=== PATIENT | female | born 1975 | race Caucasian/White ===

== ENCOUNTER 2018-02-05 06:47 | Emergency (ER) | payer OTHER ==
[~2018-02-05] VITALS: Ht 162.6 cm; Wt 128.8 kg
--- NOTE | ~2018-02-05 | EKG ---
[place] [address] [employer] [place] [address] ELECTROCARDIOGRAM REPORT Name: RAIZA SANCHEZ [facility] [id number] Admission: 02/05/18 Attend Phys: Discharge: Date of : 73 Report #: [id number] THIS REPORT FOR: //name// [facility] ED Test Date: 2018-02-05 Test Time: 07:58:22 Pat Name: RAIZA SANCHEZ Department: Room: Gender: F Field Services Manager: JJ : 1975 Requested By: Eris Dominguez Order Number: [id number] MD: Sea [place]ates Measurements Intervals [place] Rate: 77 P: 39 MT: 153 QRS: 41 QRSD: 101 T: 63 QT: 403 QTc: 457 Interpretive Statements Sinus rhythm Low voltage, extremity and precordial leads Compared to ECG 08/07/2015 04:46:43 Low QRS voltage now present Sinus arrhythmia no longer present T-wave abnormality no longer present Electronically Signed On 02-05-2018 8:24:48 CDT by Sea [place]ates [email or web address] <ELECTRONICALLY SIGNED> By: Sea Coates MD 02/05/18 [id number] Sea Coates MD /[email or web address]
[~2018-02-05 06:47] MED LIST: ACETAMINOPHEN650 M5 PO; ADVAIR 250-501 EACH INH; ADVAIR 500-501 EACH INH; ALBUTEROL2.5 MG/0.5 INH; AVELOX 400 MG400 M1 PO; AVELOX 400 MG400 MG PO; CLARITIN10 MG PO; CLONAZEPAM 1 MG1 M1 PO; DUONEB 2.5-0.5 M3 ML; ESKALITH300 MG PO; GLUCOPHAGE XR500 MG; GLUCOPHAGE500 MG PO; HYDROXYZINE HCL25 M1; INVEGA9 MG; INVEGA9 MG PO; LIPITOR10 MG PO; LITHIUM CARBON300 M3 PO; MUCINEX600 MG PO; NABUMETONE 500500 M1; NAPROSYN500 MG; PREDNISONE 10 M10 M1; PREDNISONE 10 M10 M1 PO; PREDNISONE 20 M20 MG PO; PRISTIQ100 MG PO; PRISTIQ50 MG PO; PROAIR HFA8.5 GM; SINGULAIR 10 MG10 M1 PO; SPIRIVA; SPIRIVA INH; TOPAMAX 100 MG100 MG PO; TYLENOL EX-STR500 M2 PO; VENTOLIN HFA 1818 GM; ZANTAC 150MG T150 M1
[2018-02-05 07:29] LABS: EOSINOPHILS 5.7 % (0.0-3.0); HEMATOCRIT 42.2 % (37.0-47.0); HEMOGLOBIN 13.9 gm/dL (12.0-15.0); LYMPHOCYTES 18.6 % (24.0-44.0); MCH 29.5 pg (26.0-34.0); MCHC 32.9 g/dL (28.0-37.0); MCV 89.8 fL (80.0-100.0); MONOCYTES 7.2 % (1.0-8.0); PLATELET COUNT 203 thou/uL (150-400); POLYS 67.5 % (36.0-66.0); RDW 14.6 % (10.5-14.5); WBC 10.4 thou/uL (4.0-11.0)
[2018-02-05 07:39] LABS: ANION GAP 7 mmol/L (7-16); BUN 7 mg/dL (7-18); CALCIUM 8.9 mg/dL (8.5-10.1); CHLORIDE 108 mmol/L (98-107); CO2 26 mmol/L (21-32); GLUCOSE 114 mg/dL (74-106); POTASSIUM 4.2 mmol/L (3.5-5.1); SODIUM 141 mmol/L (136-145)
[2018-02-05 07:47] LABS: ALBUMIN 3.6 g/dL (3.4-5.0); SGOT 13 U/L (15-37); SGPT 32 U/L (30-65); TOTAL BILIRUBIN 0.4 mg/dL (<0.1-1.0); TOTAL PROTEIN 6.8 g/dL (6.4-8.2); TROPONIN-I < 0.04 ng/mL (<0.06)
[2018-02-05] MEDS ORDERED: PROAIR HFA8.5 GM INH (08:05)
[2018-02-05] MEDS ORDERED: PREDNISONE 20 M20 MG PO (08:05)
== END 2018-02-05 08:10 | disposition home or self-care (01) ==
LOC: ER 06:47
PROVIDERS: Emergency Medicine
DX: J44.1 Chronic obstructive pulmonary disease with (acute) exacerbation (principal); F31.9 Bipolar disorder, unspecified; I10 Essential (primary) hypertension; E11.9 Type 2 diabetes mellitus without complications; F17.210 Nicotine dependence, cigarettes, uncomplicated